=== PATIENT | male | born 1955 | race Caucasian/White ===

== ENCOUNTER 2019-09-26 19:31 | Emergency (ER) | payer OTHER ==
[~2019-09-26] VITALS: Ht 162.6 cm; Wt 63.5 kg
[2019-09-26 22:51] VITALS: BP 150/58
== END 2019-09-26 23:54 | disposition home or self-care (01) ==
LOC: ER 19:40
DX: S08.0XXA Avulsion of scalp, initial encounter (principal); W11.XXXA Fall on and from ladder, initial encounter; Y93.89 Activity, other specified; Y99.8 Other external cause status; Y92.89 Other specified places as the place of occurrence of the external cause
CPT/HCPCS: 70450